=== PATIENT | female | born 2000 | race Caucasian/White ===

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

== ENCOUNTER 2018-03-15 18:11 | Emergency (ER) | payer MEDICAID ==
[2018-03-15 18:19] VITALS: BP 111/73
[2018-03-15] MEDS ORDERED: ALBUTEROL INH PREPACK MDI TAKEHOME ONE ×2 (18:30)
[2018-03-15] MEDS ORDERED: NS 1,000 ML IV ONE (18:30)
--- NOTE | 2018-03-15 18:30 | EDPHY ---
General Time Seen by Provider: 03/15/18 18:21 Narrative: CHIEF COMPLAINT: Flu symptoms, vomiting HISTORY OF PRESENT ILLNESS: Patient presents with complaints of influenza illness. She has been feeling weakness, body aches, fever, joint pains, cough, nausea vomiting. She started feeling ill [place] morning. She went to urgent care and they diagnosed her with flu with positive test. The offered Tamiflu she declined. She says that her cough has gotten worse. She is not vomiting worse. She is tolerating minimal liquids. She is not tolerating solids. She has no chest pain. The cough is dry but she is concerned because she developed pneumonia last year. She has felt warm but did not take her temperature. No abdominal pain. No flank pain. No urinary complaints. No other associated complaints or modifying factors REVIEW OF SYSTEMS: Ten systems reviewed and are negative unless otherwise noted in the HPI PCP: None locally. SPECIALISTS: None locally PAST MEDICAL HISTORY: Denies any medical history PAST SURGICAL HISTORY: No recent surgeries SOCIAL HISTORY: Nonsmoker. Occasional alcohol use. Occasional marijuana use. [employer] student. Originally from [place] FAMILY HISTORY: Noncontributory EXAMINATION General Appearance: Alert, no distress. [place] Head: normocephalic, atraumatic Eyes: Pupils equal and round, no conjunctival pallor or injection ENT, Mouth: Mucous membranes moist. Uvula is midline. Airway is patent. Neck: Normal inspection, supple, non-tender. No meningeal signs. Respiratory: Mild wheezing expiratory. No retractions. No distress. No crackles. No diminishment. No tachypnea Cardiovascular: Regular rate and rhythm. No murmur Gastrointestinal: Abdomen is soft and nontender. No tympany rigidity. Back: non-tender, no bony abnormalities Neurological: A&O, nonfocal, normal gait Skin: Warm and dry, no rash. No petechiae or purpura Extremities: Nontender, no pedal edema Psychiatric: Mood and affect normal DIFFERENTIAL DIAGNOSES: Including but not limited to influenza, pneumonia, bronchitis, upper respiratory infection, lower respiratory infection MDM: 6:25 p.m. Flu-like symptoms with positive flu test on Friday. She reports worsening cough and vomiting, thus I have ordered IV fluid resuscitation. I do not feel she warrants an x-ray as her lungs are clear with mild wheezing. There is no consolidation or diminishment. I have ordered albuterol inhaler for to be provided here. She will be discharged home with instructions for albuterol, promethazine for nausea, Tessalon Perles for cough. Also recommend further over -the-counter anti-inflammatories. ED precautions for any worsening symptoms, chest pain, productive cough or fever. She is comfortable this plan. She will be discharged home stable condition following IV fluid administration. SUPERVISION: This patient was independently evaluated without direct involvement of or examination by the attending physician. - History Smoking Status: Never smoked - Objective Vital Signs: Initial Vital Signs Temperature (C) 97.9 F 03/15/18 18:16 Heart Rate 95 03/15/18 18:16 Respiratory Rate 16 03/15/18 18:16 Blood Pressure 111/73 03/15/18 18:16 O2 Sat (%) 98 03/15/18 18:16 O2 Delivery Mode Room Air Allergies/Adverse Reactions: No Known Allergies Allergy (Verified 08/06/17 11:59) Home Medications: Medication Instructions Recorded NK [No Known Home Meds] 03/15/18 Medications Given: Discontinued Medications Albuterol Sulfate (Proventil Inh Prepack) 1 mdi TAKEHOME EDNOW ONE Stop: 03/15/18 18:31 Last Admin: 03/15/18 18:41 Dose: 1 mdi Sodium Chloride (Ns) 1,000 mls @ 0 mls/hr IV EDNOW ONE; Wide Open PRN Reason: Protocol Stop: 03/15/18 18:31 Last Admin: 03/15/18 18:40 Dose: 1,000 mls Promethazine HCl (Phenergan 25 Mg Prepack #4) 1 btl TAKEHOME EDNOW ONE Stop: 03/15/18 18:32 Last Admin: 03/15/18 18:47 Dose: 1 btl Departure - Departure Disposition: Home, Routine, Self-Care Clinical Impression: Influenza, Bronchitis Condition: Good Instructions: Promethazine (By mouth), Albuterol (By breathing), Influenza (ED) Additional Instructions: 1. Continue [id number]-efihpcy anti-inflammatories, ibuprofen 400-600 mg every 6- 8 hours 2. Promethazine as provided and prescribed as needed for nausea vomiting as well as cough 3. Tessalon Perles as prescribed as needed for cough 4. Albuterol inhaler, 1-2 puffs as needed for wheezing or shortness of breath 5. ED precautions as discussed Referrals: NONE *PRIMARY CARE P,. [Primary Care Provider] - As per Instructions Physician,Emergency Dept, [Medical Doctor] - As per Instructions Stand Alone Forms: School Excuse
[2018-03-15] MEDS ORDERED: PROMETHAZINE 25 MG PREPACK #4 BTL TAKEHOME ONE (18:31)
== END 2018-03-15 19:38 | disposition home or self-care (01) ==
DX: J11.1 Influenza due to unidentified influenza virus with other respiratory manifestations (principal); J40 Bronchitis, not specified as acute or chronic; E86.9 Volume depletion, unspecified